=== PATIENT | female | born 1995 | race Hispanic/Latino ===

== ENCOUNTER → 2017-10-29 | Outpatient (CLI) | payer OTHER ==
[2017-10-29 10:21] LABS: BASO % 0.3 % (0.0-1.0); EOS % 0.1 % (0.0-3.0); HEMATOCRIT 36.4 % (36.0-47.0); HEMOGLOBIN 12.9 g/dl (12.0-16.0); IMMATURE GRANULOCYTE % 0.5 % (0-0); LYMPH # 1.4 10^3/uL (1.5-6.5); LYMPH % 18.8 % (24.0-44.0); MEAN CORPUSCULAR HEMOGLOBIN 30.4 pg (27.0-33.0); MEAN CORPUSCULAR HGB CONC 35.4 g/dl (32.0-36.5); MEAN CORPUSCULAR VOLUME 85.8 fl (80.0-96.0); MONO # 0.4 10^3/uL (0.0-0.8); MONO % 5.5 % (0.0-5.0); NEUTROPHILS # 5.7 10^3/uL (1.8-7.7); NEUTROPHILS % 74.8 % (36.0-66.0); PLATELET COUNT, AUTOMATED 202 10^3/uL (150-450); RED BLOOD COUNT 4.24 10^6/uL (4.00-5.40); WHITE BLOOD COUNT 7.6 10^3/uL (4.0-10.0)
[2017-10-29 10:42] LABS: TOTAL PROTEIN,RANDOM URINE 37.7 MG/DL (0.0-12.0)
[2017-10-29 10:44] LABS: ALT/SGPT 19 U/L (12-78); AST/SGOT 15 U/L (7-37); BILIRUBIN,TOTAL 0.2 MG/DL (0.2-1.0); CREATININE FOR GFR 0.63 MG/DL (0.55-1.30); GLOMERULAR FILTRATION RATE > 60.0 (>60); LDH LACTATE DEHYDROGENASE 139 U/L (84-246); URIC ACID 4.1 MG/DL (2.6-6.0)
== END ==
LOC: M LAB 09:29
DX: Z36.89 Encounter for other specified antenatal screening (principal); Z3A.00 Weeks of gestation of pregnancy not specified
CPT/HCPCS: 84460

== ENCOUNTER 2017-10-31 06:32 | Inpatient (IN) | payer OTHER ==
[2017-10-31] MEDS: LR 1,000 ML IV ×3 (09:03→22:30)
[2017-10-31] MEDS: OXYTOCIN DRIP 30 UNITS in APPROPRIATE DILUENT 1 EA IV (09:15)
[2017-10-31 09:17] LABS: HEMATOCRIT 35.2 % (36.0-47.0); HEMOGLOBIN 12.7 g/dl (12.0-16.0); MEAN CORPUSCULAR HEMOGLOBIN 31.1 pg (27.0-33.0); MEAN CORPUSCULAR HGB CONC 36.1 g/dl (32.0-36.5); MEAN CORPUSCULAR VOLUME 86.1 fl (80.0-96.0); PLATELET COUNT, AUTOMATED 209 10^3/uL (150-450); RED BLOOD COUNT 4.09 10^6/uL (4.00-5.40); RED CELL DISTRIBUTION WIDTH 12.9 % (11.5-14.5)
[2017-10-31 09:43] LABS: AMPHETAMINES URINE REFLEX NEGATIVE (NEGATIVE); BARBITURATES URINE REFLEX NEGATIVE (NEGATIVE); BENZODIAZEPINES URINE REFLEX NEGATIVE (NEGATIVE); CANNABINOIDS URINE REFLEX NEGATIVE (NEGATIVE); COCAINE METABOLITE URINE REFLE NEGATIVE (NEGATIVE); METHADONE URINE REFLEX NEGATIVE (NEGATIVE); OPIATES URINE REFLEX NEGATIVE (NEGATIVE); PHENCYCLIDINE URINE REFLEX NEGATIVE (NEGATIVE)
[2017-10-31] MEDS ORDERED: FENTANYL 2MCG/ML ROPIVACAINE 0.2% IN 0.9% NACL 200ML IVBAG As Ordered (12:53)
[2017-10-31] MEDS ORDERED: REFRIGERATOR IV KEYS XX (13:45)
[2017-10-31] MEDS ORDERED: LACTATED RINGER'S 1000 ML IV (13:45)
[2017-10-31] MEDS ORDERED: ePHEDrine INJ 50 MG/ML VIAL IV (13:45)
[2017-10-31] MEDS ORDERED: ONDANSETRON 4MG/2ML VIAL (J2405) IV ×3 (13:45→17:30)
[2017-10-31] MEDS ORDERED: EPIDURAL COMMENT XX (13:45)
[2017-10-31] MEDS ORDERED: EPIDURAL/PCA KEYS XX (13:45)
[2017-10-31] MEDS ORDERED: NALOXONE INJ 0.4 MG/1 ML VIAL (J2310) IV (13:45)
[2017-10-31] MEDS ORDERED: diphenhydrAMINE INJ 50MG/ML VIAL (J1200) IV (13:45)
[2017-10-31] MEDS ORDERED: FENTANYL/ROPIVACAINE/NACL BAG 200 ML EPIDURAL (13:45)
[2017-10-31] MEDS ORDERED: ceFAZolin 2 GM/D5W 50 ML IV BAG (J0690 PER 500MG) As Ordered (15:10)
[2017-10-31] MEDS: BICITRA 30ML SOLN UDC PO (15:16)
[2017-10-31] MEDS ORDERED: MORPHINE PRES-FREE INJ 10 MG/10 ML VIAL (J2274) As Ordered (15:41)
[2017-10-31] MEDS ORDERED: KETOROLAC 60 MG/2 ML VIAL (J1885) As Ordered (15:41)
[2017-10-31] MEDS ORDERED: LIDOCAINE 2% W/EPIN INJ 20ML **PRES FREE As Ordered (15:41)
[2017-10-31] MEDS ORDERED: OXYTOCIN INJ 10 UNITS/ML VIAL (J2590) As Ordered ×2 (15:41→16:15)
[2017-10-31] MEDS ORDERED: ONDANSETRON 4MG/2ML VIAL (J2405) As Ordered (15:41)
[2017-10-31] MEDS ORDERED: ePHEDrine INJ 50 MG/ML VIAL As Ordered (15:41)
[2017-10-31] MEDS ORDERED: KETAMINE HCL 200 MG/20 ML VIAL As Ordered (15:48)
[2017-10-31] MEDS ORDERED: fentaNYL 100 MCG/2 ML INJECTION (J3010) As Ordered ×2 (15:50→16:42)
[2017-10-31] MEDS ORDERED: MIDAZOLAM INJ 2 MG/2 ML VIAL (J2250) As Ordered (15:51)
[2017-10-31] MEDS ORDERED: ceFAZolin 1GM INJ (J0690 PER 500MG) As Ordered (15:59)
[2017-10-31] MEDS ORDERED: dexameTHASONE 4 MG/ML 1ML VIAL (J1100) As Ordered ×2 (16:12)
[2017-10-31] MEDS ORDERED: ROCURONIUM BROMIDE 50 MG/5 ML VIAL As Ordered (16:23)
[2017-10-31] MEDS ORDERED: SUCCINYLCHOLINE 100 MG/5 ML SYRINGE (J0330) As Ordered (16:38)
[2017-10-31 16:40] LABS: CORD GAS ABE V -3.2; CORD GAS HCO3 V 22.8 MEQ/L; CORD GAS O2 SAT V 79.3 %; CORD GAS PCO2 V 44.1 mmHg; CORD GAS PH V 7.331 UNITS; CORD GAS PO2 V 40.2 mmHg; CORD GAS SBC V 21.4 MEQ/L; CORD GAS TCO2 V 24.1 MEQ/L
[2017-10-31] MEDS ORDERED: METHYLERGONOVINE MALEATE 0.2 MG TAB PO (16:45)
[2017-10-31] MEDS ORDERED: PERCOCET 5MG/325MG TAB PO ×2 (16:45→17:30)
[2017-10-31] MEDS ORDERED: PROMETHAZINE 25 MG TAB PO (16:45)
[2017-10-31] MEDS ORDERED: fentaNYL 100 MCG/2 ML INJECTION (J3010) IV (17:30)
[2017-10-31] MEDS: DOCUSATE SODIUM 100 MG CAP PO (21:35)
[2017-10-31] MEDS: KETOROLAC 30 MG/ML VIAL (J1885) IV (22:17)
[2017-11-01] MEDS: KETOROLAC 30 MG/ML VIAL (J1885) IV ×3 (04:07→16:35)
[2017-11-01] MEDS: RHOGAM 300 MCG (1500 IU) INJ (J2790) IM (04:30)
[2017-11-01] MEDS: MEASLES,MUMPS,RUBELLA VACCINE INJ (MMR-II) (90707) SC (04:30)
[2017-11-01 07:27] LABS: HEMATOCRIT 27.4 % (36.0-47.0); MEAN CORPUSCULAR HEMOGLOBIN 30.6 pg (27.0-33.0); MEAN CORPUSCULAR VOLUME 87.3 fl (80.0-96.0); PLATELET COUNT, AUTOMATED 180 10^3/uL (150-450); RED BLOOD COUNT 3.14 10^6/uL (4.00-5.40); RED CELL DISTRIBUTION WIDTH 13.1 % (11.5-14.5); WHITE BLOOD COUNT 14.5 10^3/uL (4.0-10.0)
[2017-11-01 07:28] LABS: HEMOGLOBIN 9.6 g/dl (12.0-16.0)
[2017-11-01] MEDS: DOCUSATE SODIUM 100 MG CAP PO ×2 (07:51→21:16)
[2017-11-01] MEDS: PRENATAL VITAMINS CHEWABLE TABLET PO (07:51)
[2017-11-01] MEDS: PERCOCET 5MG/325MG TAB PO (21:17)
[2017-11-01] MEDS: IBUPROFEN 800 MG TAB PO (23:59)
[2017-11-02] MEDS: PERCOCET 5MG/325MG TAB PO ×2 (01:14→05:30)
[2017-11-02] MEDS: DOCUSATE SODIUM 100 MG CAP PO (09:14)
[2017-11-02] MEDS: IBUPROFEN 800 MG TAB PO (09:14)
[2017-11-02] MEDS: PRENATAL VITAMINS CHEWABLE TABLET PO (09:14)
[2017-11-02] MEDS: INFLUENZA QUADRIVALENT PF VACCINE 0.5ML SYRINGE (90686) IM (10:50)
== END 2017-11-02 11:10 | disposition home or self-care (01) | DRG 766 ==
LOC: M LDI 06:32 → M OBS 17:52
PROVIDERS: Student in an Organized Health Care Education/Training Program
PROC: 10D00Z1 Extraction of Products of Conception, Low, Open Approach (ICD-10-PCS; principal; 2017-10-31 15:20)
PROC: 3E033VJ Introduction of Other Hormone into Peripheral Vein, Percutaneous Approach (ICD-10-PCS; 2017-10-31 15:20)
DX: O10.02 Pre-existing essential hypertension complicating childbirth (principal); Z3A.39 39 weeks gestation of pregnancy; Z37.0 Single live birth; O76 Abnormality in fetal heart rate and rhythm complicating labor and delivery

== ENCOUNTER 2019-08-14 09:25 | Inpatient (IN) | payer OTHER ==
[~2019-08-14] VITALS: Ht 157.5 cm; Wt 92.5 kg
[2019-08-14] VITALS (8 sets, daily range): BP systolic 120–137; BP diastolic 74–88
[~2019-08-14 09:25] MED LIST: COLA100C5 PO; FERR325T82 PO; MOTR200T44 PO; OXYC1TAB23 PO; PERC5TAB12 PO; PRENTAB9 PO; VITA-158 PO
[2019-08-14] MEDS ORDERED: ceFAZolin SOD 2 GM in IV 1 EA IV ONE (10:00)
[2019-08-14] MEDS ORDERED: BICITRA 30ML SOLN UDC PO ONE (10:00)
--- NOTE | 2019-08-14 10:32 | HPEPDOC ---
Obstetrical History & Physical General Date of Admission Aug 14, 2019 at 09:25 History of Present Illness patient is a 24 yo @38+6wks gestation with newly diagnosed GHTN present for repeat delivery. Patient has history of section and she desires repeat. She and spouse are also family complete and desires permanent sterilization with bilateral tubal ligation. She was counseled regarding repeat section and BTL during visits. Today without concerns. denies PENN/N/V/change in vision. 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: No pertinent history Past Medical History Surgical History: section, Other Family History Significant Family History: No pertinent family hx Social History Marital Status: Family situation: Spouse/partner home * Smoker: non-smoker Alcohol: Denies Drugs: denies Imunizations Tdap status: current Influenza Status: current Allergies Coded Allergies: No Known Allergies (Unverified , 08/10/19) Medications Scheduled Ascorbic Acid (Vitamin C) 500 Mg Tablet, 1 TAB PO DAILY Ferrous Sulfate (Iron) 325 Mg Tablet, 325 MG PO DAILY No.137/Iron/Folic Acd ( Vitamin Tablet) 1 Tab Tab, 1 TAB PO DAILY Physical Examination Physical Examination GENERAL: Alert and oriented times three. ABDOMEN: Gravid and non-tender to touch. FETUS: fetus is vertex (VTX) by [place]. HEART RATE: Regular rate and rhythm. LUNGS: Clear to auscultation (CTA). EXTREMITIES: No edema. No clonus. Deep tendon reflexes (DTRs) +1 EFW: 3600gm Laboratory Data 24H LABS Laboratory Tests 2 08/14/19 09:52: Serology Scanned Report Hepatitis B Testing Pertinent Laboratoy Data Blood Type: O+ RBC Antibody Screen: Negative HIV: Negative Hepatitis B: Negative Rapid Plasma Reagin: Nonreactive Rubella: Immune Varicella: Immune Chlamydia/Gonorrhea: Negative Group B Streptococcus: Negative Anatomy Ultrasound Placenta Location: Posterior Placenta Previa: No Steroid Therapy Steroid Therapy: No Assessment Heart Rate (FHR): 135 Variability: Moderate Accelerations: Present Decelerations: None Tocometer Contractions: No Assessment/Plan Assessment patient is a 24 yo @ 38+6wks with gestational hypertension desiring repeat section and BTL. Discussed risks of delivery with patient to include infection, bleeding requiring blood transfusion, hysterectomy, injury to surrounding organs, need for reoperation requiring repair, post operative pain, possible injury to baby. Discussed risks of blood transfusion to include anaphylactic reaction as well as transmission of blood borne pathogens such as HIV and Hepatitis. Discussed alternatives to BTL for non permanent contraception. Tubal ligation is permanent procedure and if patient desires to have more children then she would have to adopt or IVF which can be expensive. Discussed risk of BTL to include high rate of regrets in patients less than 30 years of age, less than 1% chance of failure, increased risk of ectopic if she becomes after BTL. patient expresses understanding and desires to have RLTCD with BTL. Plan Admit and orient. Administrative Accountant and consent. Diet: NPO Labs and intravenous (IV) per unit protocol. patient counseled as above. consent forms signed ancef 2 gm for prophy back or once team ready. DO SHAUN Cohen LUAT N. DO Aug 14, 2019 10:32
[2019-08-14] MEDS: LR 1,000 ML IV SCH ×3 (10:36→23:00)
[2019-08-14 10:56] LABS: APPEARANCE, URINE HAZY (CLEAR); BACTERIA, URINE AUTO NEGATIVE (NEGATIVE); BILIRUBIN, URINE AUTO NEGATIVE (NEGATIVE); BLOOD, URINE BLOOD NEGATIVE (NEGATIVE); COLOR, URINE YELLOW (YELLOW); GLUCOSE, URINE (UA) AUTO NEGATIVE (NEGATIVE); HEMATOCRIT 37.4 % (36.0-47.0); HEMOGLOBIN 12.6 g/dl (12.0-15.5); KETONE, URINE AUTO TRACE mg/dL (NEGATIVE); LEUKOCYTE ESTERASE, URINE AUTO 1+ (NEGATIVE); MEAN CORPUSCULAR HEMOGLOBIN 29.2 pg (27.0-33.0); MEAN CORPUSCULAR HGB CONC 33.7 g/dl (32.0-36.5); MEAN CORPUSCULAR VOLUME 86.8 fl (80.0-96.0); MUCUS, URINE SMALL (NEGATIVE); NITRITE, URINE AUTO NEGATIVE (NEGATIVE); PLATELET COUNT, AUTOMATED 205 10^3/uL (150-450); PROTEIN, URINE AUTO 1+ mg/dL (NEGATIVE); RBC, URINE AUTO 2 /HPF (0-3); RED BLOOD COUNT 4.31 10^6/uL (4.00-5.40); SPECIFIC GRAVITY URINE AUTO 1.026 (1.002-1.035); SQUAMOUS EPITHELIAL CELL UR AU 4 /HPF (0-6); UROBILINOGEN, URINE AUTO 0.2 mg/dL (0.0-2.0); WBC, URINE AUTO 12 /HPF (0-3); WHITE BLOOD COUNT 6.4 10^3/uL (4.0-10.0)
[2019-08-14 11:24] LABS: TOTAL PROTEIN,RANDOM URINE 38.5 MG/DL (0.0-12.0)
[2019-08-14 11:46] LABS: ALT/SGPT 14 U/L (12-78); BILIRUBIN,TOTAL 0.2 MG/DL (0.2-1.0); CREATININE FOR GFR 0.58 MG/DL (0.55-1.30); GLOMERULAR FILTRATION RATE > 60.0 (>60); LDH LACTATE DEHYDROGENASE 174 U/L (84-246); URIC ACID 3.4 MG/DL (2.6-6.0)
[2019-08-14] MEDS ORDERED: MORPHINE PRES-FREE INJ 10 MG/10 ML VIAL (J2274) As Ordered ONE (13:27)
[2019-08-14] MEDS ORDERED: OXYTOCIN INJ 10 UNITS/ML VIAL (J2590) As Ordered ONE ×2 (13:29→13:30)
[2019-08-14] MEDS ORDERED: ONDANSETRON 4MG/2ML VIAL (J2405) As Ordered ONE ×2 (13:32→15:41)
[2019-08-14] MEDS ORDERED: dexameTHASONE 4 MG/ML 1ML VIAL (J1100) As Ordered ONE (13:32)
[2019-08-14] MEDS ORDERED: NALBUPHINE HCL 10 MG/ML AMP (J2300) IV PRN ×2 (13:48→15:45)
[2019-08-14] MEDS ORDERED: METOCLOPRAMIDE INJ 10MG/2ML VIAL (J2765) IV PRN (13:48)
[2019-08-14] MEDS ORDERED: NALOXONE INJ 0.4 MG/1 ML VIAL (J2310) IV PRN ×2 (13:48)
[2019-08-14] MEDS ORDERED: diphenhydrAMINE INJ 50MG/ML VIAL (J1200) IV PRN (13:48)
[2019-08-14] MEDS ORDERED: ONDANSETRON 4MG/2ML VIAL (J2405) IV PRN ×2 (13:48→15:45)
[2019-08-14] MEDS ORDERED: MEASLES,MUMPS,RUBELLA VACCINE INJ (MMR-II) (90707) SC SCH (15:00)
[2019-08-14] MEDS ORDERED: DOCUSATE SODIUM 100 MG CAP PO PRN (15:00)
[2019-08-14] MEDS ORDERED: PERCOCET 5MG/325MG TAB PO PRN ×2 (15:00)
[2019-08-14] MEDS ORDERED: RHOGAM 300 MCG (1500 IU) INJ (J2790) IM SCH (15:00)
--- NOTE | 2019-08-14 15:01 | DNPDOC ---
[facility] Delivery Note Delivery Note DATE OF DELIVERY: 14Aug2019 PREDELIVERY DIAGNOSIS: 38+6/7 weeks' gestation GHTN POST DELIVERY DIAGNOSIS: status post repeat delivery PROCEDURE: repeat low transverse section]. LONG TERM CARE SOCIAL WORKER: Dr. Guillaume Cohen DO ANESTHESIA: Epidural ESTIMATED BLOOD LOSS: 500 mL. FINDINGS: 6lbs 11 oz, 3020 gm, Score 9/9. DELIVERY SUMMARY: Uncomplicated repeat low transverse delivery. see operative note for details. GUILLAUME COHEN DO Aug 14, 2019 15:01
[2019-08-14] MEDS ORDERED: OXYTOCIN DRIP 30 UNITS in IV 1 EA IV SCH (15:15)
[2019-08-14] MEDS ORDERED: OXYTOCIN 30 UNITS IN 0.9% NaCl 500ML IV BAG (J2590) As Ordered ONE (15:19)
[2019-08-14] MEDS ORDERED: KETOROLAC 30 MG/ML VIAL (J1885) As Ordered ONE (15:35)
[2019-08-14] MEDS ORDERED: KETOROLAC 30 MG/ML VIAL (J1885) IV PRN (15:45)
[2019-08-14] MEDS ORDERED: fentaNYL 100 MCG/2 ML INJECTION (J3010) IV PRN (15:45)
[2019-08-14] MEDS: KETOROLAC 30 MG/ML VIAL (J1885) IV SCH (22:27)
[2019-08-15 02:00] VITALS: BP 115/74
[2019-08-15] MEDS: KETOROLAC 30 MG/ML VIAL (J1885) IV SCH ×2 (04:00→10:22)
[2019-08-15 05:38] VITALS: BP 102/59
--- NOTE | 2019-08-15 07:34 | IPNPDOC ---
Progress Note Date of Service: Aug 15, 2019 Day#: 1 Progress Note SUBJECT: patient is a 24 yo s/p RLTCD @38+6wks for GHTN POD #1. Patient without concerns today. She has been ambulating, voiding spontaneously without issue and tolerating regular diet. Breast feeding without issue. OBJECTIVE: VITAL SIGNS: Within normal limits, afebrile. Alert and oriented times three. Abdomen: Fundus firm at U-1, dressing on LE: no edema/erythema/tenderness A/P patient is pod #1, doing well. encourage bf. discussed wound care. dressing stays on for 7 days. routine post operative are. anticipate d/c home ppd #2. Le, DO VS, I&O, 24H, Fishbone Vital Signs/I&O Vital Signs Date Time Temp Pulse Resp B/P (MAP) Pulse Ox O2 Delivery O2 Flow Rate FiO2 08/15/19 05:38 97.6 58 14 102/59 (73) 98 Room Air I&O- Last 24 Hours up to 6 AM 08/15/19 06:00 Intake Total 1800 ml Output Total 2375 ml Balance -575 ml Laboratory Data 24H LABS Laboratory Tests 2 08/14/19 09:52: Serology Scanned Report Hepatitis B Testing 08/14/19 10:38: Nucleated Red Blood Cells % (auto) 0.0, Urine Color YELLOW, Urine Appearance HAZ Y, Urine pH 6.0, Urine Specific [place] 1.026, Urine Protein 1+H, Urine Glucose (Auto)(UA) NEGATIVE, Urine Ketones (Auto) TRACEH, Urine Blood NEGATIVE, Urine Nitrite NEGATIVE, Urine Bilirubin NEGATIVE, Urine Urobilinogen 0.2, Urine Leukocyte Esterase (Auto) 1+H, Urine WBC (Auto) 12H, Urine RBC (Auto) 2, Urine Hyaline Casts (Auto) 0, Urine Bacteria (Auto) NEGATIVE, Urine Squamous Epithelial Cells 4, Urine Mucus (Auto) SMALL, Urine Sperm (Auto) , Urine Random Creatinine 230.0, Urine Random Total Protein 38.5H, Glomerular Filtration Rate > 60.0, Uric Acid 3.4, Total Bilirubin 0.2, Aspartate Amino Transf (AST/SGOT) 19, Alanine Aminotransferase (ALT/SGPT) 14, Lactate Dehydrogenase 174, Syphilis S erology NONREACTIVE CBC/BMP Laboratory Tests 08/14/19 10:38 LE,LUAT N. DO Aug 15, 2019 07:34
--- NOTE | 2019-08-15 08:02 | POST-OPPD ---
Postoperative Procedure Note Date Of Procedure: Aug 14, 2019 PREOPERATIVE DIAGNOSIS: Gravid @ 38+6wks gestation Gestational hypertension POSTOPERATIVE DIAGNOSIS: vanessa viable male infant FINDINGS: normal appearing uterus, ovaries and fallopian tubes. viable male infant, 9/9 PROCEDURE: Repeat low transverse delivery adhesiolysis SURGEON: Aniya Cohen DO RECOVERY OPERATOR: Edis Maldonado MD ANESTHESIA: epidural SPECIMENS: none ESTIMATED BLOOD LOSS: 500cc REPLACED: 1500cc LR DRAINS: 50 cc urine COMPLICATIONS: none POSTOPERATIVE CONDITION: stable Description of procedure: The risks, benefits, indications and alternatives to the procedure were reviewed with the patient and informed consent was obtained. Spinal anesthesia dosed for surgical analgesic. She was prepped and draped in the normal sterile fashion in the dorsal supine position with a leftward tilt. The abdomen was entered through pfannenstiel incision following prior incisional scar line. Sharp dissection performed down to fascia. Fascia layer entered sharply and bluntly from anterior abdominal muscle. Peritoneum entered sharply and . There was omental adhesions to peritoneum. Lower uterine segment identified. Vesicopertonium identified. A [place] uterine incision was made at the lower uterine segment. The uterine incision was extended superolaterally. Baby cephalic. Head delivered through hysterotomy, followed by anterior and posterior shoulder. Body followed with ease. The cord was clampedx2 and cut. The infant was handed off to awaiting pediatric team. Pitocin bolus started, the placenta delivered spontaneously. The uterus exteriorized. The uterus was cleared of all clots and debris. The uterine incision was repaired with O Chromic and imbricating layer using O monocryl. Hysterotomy incision inspected to be hemostatic. Normal appearing bilateral ovaries and fallopian tubes. Gutter irrigated and suctioned. Uterus internalized. The peritoneum, fascia and muscle bellies were inspected and noted to be hemostatic. Omental adhesions dissected off peritoneum. Peritoneum approximated. The fascia approximated with O vicryl. The subcutaneous tissue closed with 3-0 vicryl. The skin was closed subcuticular using 4-0 monocryl. Dressing applied. The vagina was cleared of clots. Sponge, laps, needle and instruments count correct x 2. Patient taken to recovery room in stable condition. DO SHAUN Cohen LUAT N. DO Aug 14, 2019 15:05
[2019-08-15 08:16] LABS: MEAN CORPUSCULAR HEMOGLOBIN 29.7 pg (27.0-33.0); MEAN CORPUSCULAR HGB CONC 33.9 g/dl (32.0-36.5); MEAN CORPUSCULAR VOLUME 87.8 fl (80.0-96.0); PLATELET COUNT, AUTOMATED 184 10^3/uL (150-450); RED BLOOD COUNT 3.53 10^6/uL (4.00-5.40); WHITE BLOOD COUNT 9.3 10^3/uL (4.0-10.0)
[2019-08-15 08:19] LABS: HEMOGLOBIN 10.5 g/dl (12.0-15.5)
[2019-08-15] MEDS: PRENATAL VITAMINS CHEWABLE TABLET PO SCH (09:26)
[2019-08-15 11:25] VITALS: BP 138/78
[2019-08-15] MEDS: LR 1,000 ML IV SCH (14:00)
[2019-08-15 14:28] VITALS: BP 114/76
[2019-08-15] MEDS: IBUPROFEN 800 MG TAB PO SCH (16:11)
[2019-08-15 18:04] VITALS: BP 120/72
[2019-08-15 21:30] VITALS: BP 119/78
[2019-08-16] MEDS: IBUPROFEN 800 MG TAB PO SCH ×2 (00:23→07:56)
[2019-08-16 02:00] VITALS: BP 112/68
[2019-08-16 06:00] VITALS: BP 108/59
[2019-08-16] MEDS: PRENATAL VITAMINS CHEWABLE TABLET PO SCH (07:56)
[2019-08-16] MEDS ORDERED: IBUP80TA PO (10:25)
[2019-08-16] MEDS ORDERED: DOCU100C16 PO (10:25)
[2019-08-16] MEDS ORDERED: PERCOCET PO (10:25)
--- NOTE | 2019-08-16 19:51 | IPN ---
DATE: 08/15/2019 This lady is at 38 and 6 weeks of gestation and had a diagnosis of gestational hypertension who has presented for repeat section. She delivered a live male , scores of 9 and 9 at 1 and 5 minutes respectively with epidural in place, was an uneventful section. Post section she was unable to void after the Lara catheter came out and the Lara catheter was replaced with an order to clamp and drain every 2 hours in order to initiate bladder contractility. After the Lara was removed, she had a moderate amount of voiding and has since been able to void 200 mL with no residual effect.
--- NOTE | 2019-08-17 12:50 | DSES ---
DATE OF ADMISSION: 08/14/2019 DATE OF DISCHARGE: 08/16/2019 HISTORY: This is a 24-year-old, 2, now para 2, admitted at 38 and 6 weeks of gestation for repeat section and bilateral tubal ligation by Filshie clip. She had a repeat section, but declined tubal ligation at the time of delivery. Delivered a live male 6 pounds 11 ounces, 3020 grams, Apgars of 9 and 9 at one and five minutes respectively. Her admitting hemoglobin was 12.6, hematocrit 37.4 and platelets 205. Discharge hemoglobin 10.5, hematocrit 31.0 and platelets were 184. Her vital signs on discharge, blood pressure was 108/59, respirations 17, pulse 76 and temperature 97.9. We discussed phlebitis, cystitis, mastitis, endometritis, cellulitis; diet, exercise and pain management; perineal, breast and wound care. The rest examination was unremarkable. Normocephalic, atraumatic. Neck full range of motion. Pupils equal and reactive to light. Distal pulses symmetric. No evidence of deep vein thrombosis (DVT), pulmonary embolism (PE) or superficial phlebitis. Chest is clear bilaterally at bases. No wheezes or rhonchi. No costovertebral angle (CVA) tenderness. Abdomen soft, uterus two below. Lochia is moderate. Four quadrant bowel sounds are noted. Incision is clean and dry. She has no complaints of urgency, frequency, nausea, vomiting, diarrhea or constipation. She was dispensed medication on discharge and has a 2-week incision check and a 6 week check with [facility]. All questions were answered. The patient was discharged stable.
== END 2019-08-16 13:00 | disposition home or self-care (01) | DRG 773 ==
LOC: M LDI 09:25 → M OBS 16:56
PROVIDERS: ADMIT Obstetrics & Gynecology; ATTEND Obstetrics & Gynecology
PROC: 10D00Z1 Extraction of Products of Conception, Low, Open Approach (ICD-10-PCS; principal; 2019-08-14 13:00)
DX: O13.4 Gestational [pregnancy-induced] hypertension without significant proteinuria, complicating childbirth (principal); O34.211 Maternal care for low transverse scar from previous cesarean delivery; Z3A.38 38 weeks gestation of pregnancy; Z37.0 Single live birth